=== PATIENT | male | born 1960 | race Caucasian/White ===

== ENCOUNTER 2017-06-17 06:06 | Day surgery (SDC) | payer OTHER ==
[2017-06-14 13:01] LABS: HEMATOCRIT 45.4 % (39.2-51.8); HEMOGLOBIN 15.3 g/dL (13.7-18.0)
[2017-06-14 13:04] LABS: BLOOD UREA NITROGEN 24 mg/dL (7-18)
[~2017-06-17] VITALS: Ht 182.9 cm; Wt 125.2 kg
[~2017-06-17 06:06] MED LIST: BUPR450T PO; CHOL20002 PO; FEXO180T15 PO; GLUC1TAB27 PO; MULT-717 PO; OMEG1CAP6 PO; RANI150T4 PO
[2017-06-17] MEDS ORDERED: MUPIROCIN OINT 2%, 22GM ONE (06:15)
[2017-06-17] MEDS ORDERED: OXYMETAZOLINE NASAL SPRAY 0.05%, 15ML ONE (06:15)
[2017-06-17] MEDS ORDERED: COCAINE TOPICAL SOLN 4%, 4ML ONE (06:15)
[2017-06-17] MEDS ORDERED: LIDOCAINE/PF 1%, 30ML ONE (06:15)
[2017-06-17] MEDS ORDERED: EPINEPHRINE 1 MG/ML, 1ML ONE (06:16)
[2017-06-17] MEDS ORDERED: LACTATED RINGERS 1,000 ML IV SCH (06:57)
[2017-06-17 07:12] VITALS: BP 132/83
[2017-06-17] MEDS ORDERED: FENTANYL PF 100 MCG/2ML ONE (07:12)
[2017-06-17] MEDS ORDERED: MIDAZOLAM 1 MG/ML, 2ML ONE (07:12)
[2017-06-17] MEDS ORDERED: KETAMINE 10 MG/ML, 20ML ONE (07:12)
[2017-06-17] MEDS ORDERED: LIDOCAINE-MPF 2% ,5ML ONE (07:13)
[2017-06-17] MEDS ORDERED: PROPOFOL 10 MG/ML, 20ML ONE (07:13)
[2017-06-17] MEDS ORDERED: ROCURONIUM 10MG/ML,5ML ONE (07:14)
[2017-06-17] MEDS ORDERED: PHENYLEPHRINE 10 MG/ML ONE (07:15)
[2017-06-17] MEDS ORDERED: DEXAMETHASONE 4 MG/ML, 1ML ONE ×2 (07:51)
[2017-06-17] MEDS ORDERED: PROMETHAZINE 25 MG/ML, 1ML IV PRN (08:00)
[2017-06-17] MEDS ORDERED: hydrALAzine 20 MG/ML, 1ML IV PRN (08:00)
[2017-06-17] MEDS ORDERED: MEPERIDINE/PF 25MG/0.5ML IVPush PRN (08:00)
[2017-06-17] MEDS ORDERED: ONDANSETRON 2MG/ML, 2ML IVPush PRN (08:00)
[2017-06-17] MEDS ORDERED: HYDROcodone/APAP 7.5-325MG/15ML UDC PO PRN (08:00)
[2017-06-17] MEDS ORDERED: ACETAMINOPHEN 325 MG TABLET PO PRN (08:00)
[2017-06-17] MEDS ORDERED: LABETALOL 5MG/ML, 20ML IV PRN (08:00)
[2017-06-17] MEDS ORDERED: FENTANYL PF 100 MCG/2ML IV PRN (08:00)
[2017-06-17] MEDS ORDERED: HYDROmorphone 1 MG/ML, 1ML IV PRN (08:00)
[2017-06-17] MEDS ORDERED: ONDANSETRON 2MG/ML, 2ML ONE ×2 (08:36)
[2017-06-17] MEDS ORDERED: HYDROmorphone 1 MG/ML, 1ML ONE (09:24)
[2017-06-17] MEDS ORDERED: ALBUTEROL SULFATE 2.5 MG/3 ML NPPB PRN (10:30)
[2017-06-17] MEDS ORDERED: METOCLOPRAMIDE 5 MG/ML, 2ML ONE (12:57)
[2017-06-17] MEDS ORDERED: METOCLOPRAMIDE 5 MG/ML, 2ML IVPush ONE (13:00)
== END 2017-06-17 16:15 ==
LOC: OUT 06:06
PROVIDERS: ATTEND Otolaryngology Facial Plastic Surgery
DX: J34.2 Deviated nasal septum (principal); J34.3 Hypertrophy of nasal turbinates; J34.89 Other specified disorders of nose and nasal sinuses; K21.9 Gastro-esophageal reflux disease without esophagitis; Z87.39 Personal history of other diseases of the musculoskeletal system and connective tissue; Z88.1 Allergy status to other antibiotic agents; Z88.8 Allergy status to other drugs, medicaments and biological substances
CPT/HCPCS: 30140; 30465; 30520; 36415; 71020; 80048; 85025; 93005; 94640; J0171; J1100; J1170; J2250; J2370; J2405; J2704; J2765; J3010; J3490; J7120